=== PATIENT | male | born 1995 | race Caucasian/White ===

== ENCOUNTER 2019-11-21 09:07 | Emergency (ER) | payer SELFPAY ==
[~2019-11-21] VITALS: Ht 175.3 cm; Wt 92.5 kg
[2019-11-21 09:12] VITALS: BP 124/78
[2019-11-21] MEDS ORDERED: DICL75TA2 PO (09:30)
--- NOTE | 2019-11-21 09:31 | ED Upper Extremity ---
General Chief Complaint: Upper Extremity Stated Complaint: LT SHOULDER PAIN Nursing Triage Note: Patient arrived by private vehcile with chief complaint of left shoulder pain. Pain started about 1 week ago and did not have any injury to the left shoulder. Patient stated pain is about a 4/10. No past medical history. Nursing Sepsis Screen: No Definite Risk Source: patient Exam Limitations: no limitations History of Present Illness Date Seen by Provider: November 21, 2019 Time Seen by Provider: 09:20 Initial Comments This patient is a 24-year-old male that presents to the emergency department for left shoulder pain about a week. Patient works a job that does require some lifting. Stasis been hurting has a truss to lift his arm but 45 angle. On the left side. No obvious signs of injury. Onset: last week Pain/Injury Location: left shoulder Method of Injury: unknown Allergies and Home Medications Patient Home Medication List Home Medication List Reviewed: Yes Review of Systems Constitutional: see HPI EENTM: No see HPI, No no symptoms reported, No ear discharge, No hearing loss, No ear pain, No blurred vision, No double vision, No eye pain, No tearing, No vision loss, No dental problems, No hoarseness, No mouth pain, No mouth swelling, No epistaxis, No nose congestion, No nose pain, No throat pain, No throat swelling, No other Respiratory: No no symptoms reported, No see HPI, No cough, No dyspnea on exertion, No hemoptysis, No orthopnea, No phlegm, No short of breath, No stridor, No wheezing, No other Cardiovascular: No no symptoms reported, No see HPI, No chest pain, No edema, No Hx of Intervention, No palpitations, No syncope, No vascular heart diseas, No other Musculoskeletal: joint pain All Other Systems Reviewed Negative Unless Noted: Yes Past Rxxwthn-Kvhswu-Qvecgq Hx Patient Social History Alcohol Use: Denies Use Recreational Drug Use: No Smoking Status: Current Everyday Smoker Type Used: Cigarettes 2nd Hand Smoke Exposure: Yes Recent Foreign Travel: No Contact w/Someone Who Travel: No Recent Infectious Disease Expo: No Recent Hopitalizations: No Physical Abuse: No Sexual Abuse: No Mistreated: No Fear: No Seasonal Allergies Seasonal Allergies: No Past Medical History Surgeries: No Respiratory: No Cardiac: No Neurological: No Genitourinary: No Gastrointestinal: No Musculoskeletal: No Endocrine: No HEENT: No Cancer: No Psychosocial: No Integumentary: No Blood Disorders: No Physical Exam Vital Signs Vital Signs - First Documented 11/21/19 09:12 Temp 36.2 Pulse 76 Resp 18 B/P (MAP) 124/78 (93) Pulse Ox 97 O2 Delivery Room Air Capillary Refill : Less Than 3 Seconds Height, Weight, BMI Height: '" Weight: lbs. oz. kg; 30.00 BMI Method: General Appearance: WD/WN, no apparent distress Neck: non-tender, full range of motion, supple, normal inspection Cardiovascular: normal peripheral pulses, regular rate, rhythm, no edema, no gallop, no JVD, no murmur Respiratory: chest non-tender, lungs clear, normal breath sounds, no respiratory distress, no accessory muscle use Gastrointestinal: normal bowel sounds, non tender, soft, no organomegaly, no pulsatile mass, abnormal bowel sounds Shoulder: normal inspection, non-tender, no evidence of injury, normal ROM Progress/Results/Core Measures Results/Orders Vital Signs/I&O 11/21/19 09:12 Temp 36.2 Pulse 76 Resp 18 B/P (MAP) 124/78 (93) Pulse Ox 97 O2 Delivery Room Air Blood Pressure Mean: 93 Progress Progress Note : Time: 09:28 Progress Note Negative exam. No signs of injury. Alternate heat and ice. We'll write patient prescription for diclofenac as needed for pain. Follow-up with PCP in 2-3 days Departure Impression Primary Impression: Left shoulder strain Disposition: 01 HOME, SELF-CARE Condition: Stable Departure-Patient Inst. Decision time for Depature: 09:29 Referrals: NO,LOCAL PHYSICIAN (PCP) Primary Care Physician Patient Instructions: Overuse Injuries Add. Discharge Instructions: Alternate heat and ice. We'll write patient prescription for diclofenac as needed for pain. Follow-up with PCP in 2-3 days All discharge instructions reviewed with patient and/or family. Voiced understanding. Scripts Diclofenac Sodium (Diclofenac Sodium) 75 Mg Tablet. 75 MG PO BID for 10 Days, #20 TAB 0 Refills Prov: DILIP TRUJILLO MD 11/21/19 DILIP TRUJILLO MD November 21, 2019 09:31
--- OUTSIDE RECORDS SUMMARY | 2019-11-21 09:41 | XMS REPORT | Continuity of Care Document ---
Demographics Preferred Language Unknown Marital Status Unknown Jew Affiliation Unknown Race Unknown Ethnic Group Unknown Author Organization Unknown Address Unknown Phone Unavailable Allergies There is no data. Medications There is no data. Problems Date Dx Coded Attending Type Code Diagnosis Diagnosed By 08/21/2010 V70.3 SPOR TS/SCHOOL EXAM Procedures There is no data. Results There is no data. Encounters ACCT No. Visit Date/Time Discharge Status Pt. Type Provider Facility Loc./Unit Complaint [id number] 08/26/2012 10:38:00 08/26/2012 23:59: 59 [facility] Out[facility]
== END 2019-11-21 09:35 | disposition home or self-care (01) ==
LOC: ER FS 09:09
DX: S46.912A Strain of unspecified muscle, fascia and tendon at shoulder and upper arm level, left arm, initial encounter (principal); F17.210 Nicotine dependence, cigarettes, uncomplicated; X50.0XXA Overexertion from strenuous movement or load, initial encounter
CPT/HCPCS: 99282

== ENCOUNTER 2021-07-01 15:02 | Emergency (ER) | payer SELFPAY ==
[~2021-07-01] VITALS: Ht 175.3 cm; Wt 84.0 kg
[~2021-07-01 15:02] MED LIST: DICL75TA2 PO
[2021-07-01 15:10] VITALS: BP 131/76
[2021-07-01] MEDS ORDERED: ONDANSETRON 4 MG (ZOFRAN) ORAL DISSOLVE TAB PO STA (15:27)
--- NOTE | 2021-07-01 15:52 | ED General ---
General Chief Complaint: COVID19 Suspect/Confirmed Stated Complaint: FEVER; VOMITING Nursing Triage Note: PT AMBULATE TO ROOM FS03 WITH C/O N/V/D, AND CONGESTION X1 DAY. PT REQUESTING A COVID SWAB. Source of Information: Patient History of Present Illness Date Seen by Provider: Jul 01, 2021 Time Seen by Provider: 14:45 Initial Comments Patient is a 26-year-old male who presents with nausea vomiting and diarrhea for 24 hours with fever yesterday. Patient states he has been taking ibuprofen and Tylenol and was able to eat yesterday but vomited stomach contents early this morning and continues to feel nauseated. Feels generally weak, but denies dizziness lightheadedness. No fever today. Denies cough, sore throat, shortness of breath. Denies abdominal pain other than cramping with diarrhea. No other acute symptoms or complaints. No prior abdominal surgeries. Timing/Duration: 1-3 Hours Severity: Mild Modifying Factors: improves with Other Associated Systoms: Other Allergies and Home Medications Allergies Coded Allergies: No Known Drug Allergies (Unverified , 07/01/21) Patient Home Medication List Home Medication List Reviewed: Yes Diclofenac Sodium (Diclofenac Sodium) 75 Mg Tablet.dr 75 MG PO BID Prescribed by: DILIP TRUJILLO on 11/21/19 0547 Review of Systems Review of Systems Constitutional: see HPI EENTM: see HPI Respiratory: see HPI Cardiovascular: see HPI Gastrointestinal: see HPI Genitourinary: see HPI Musculoskeletal: see HPI Skin: see HPI Psychiatric/Neurological: See HPI Immunological/Allergic: see HPI All Other Systems Reviewed Negative Unless Noted: Yes Past Ntpdvgw-Lyuedo-Czosjv Hx Patient Social History Tobacco type used: Cigarettes Smoking Status: Current Everyday Smoker Smokeless Tobacco Frequency: Never a User Use of E-Cig and/or Vaping dev: No Use of E-Cig and/or Vaping Srikanth: Never a User Substance use?: No Alcohol Use?: No Pt feels they are or have been: No Seasonal Allergies Seasonal Allergies: No Past Medical History Surgeries: No Respiratory: No Cardiac: No Neurological: No Genitourinary: No Gastrointestinal: No Musculoskeletal: No Endocrine: No HEENT: No Cancer: No Psychosocial: No Integumentary: No Blood Disorders: No Physical Exam Vital Signs Vital Signs - First Documented 07/01/21 15:10 Temp 36.5 Pulse 82 Resp 16 B/P (MAP) 131/76 (94) O2 Delivery Room Air Capillary Refill : Less Than 3 Seconds Height, Weight, BMI Height: '" Weight: lbs. oz. kg; 27.00 BMI Method: General Appearance: Anxious Eyes: Bilateral Eye Normal Inspection, Bilateral Eye PERRL, Bilateral Eye EOMI HEENT: PERRL/EOMI, TMs Normal, Normal ENT Inspection, Pharynx Normal Neck: Full Range of Motion, Non Tender Respiratory: Chest Non Tender, Lungs Clear Cardiovascular: Regular Rate, Rhythm Gastrointestinal: Non Tender, Soft Back: Normal Inspection, No CVA Tenderness Extremity: Normal Capillary Refill Neurologic/Psychiatric: Alert, Oriented x3, Normal Mood/Affect Skin: Normal Color, Warm/Dry Progress/Results/Core Measures Suspected Sepsis SIRS Temperature: Pulse: 82 Respiratory Rate: 16 Blood Pressure 131 /76 Mean: 94 Results/Orders Lab Results Laboratory Tests Test 07/01/21 15:18 Range/Units My Orders Orders - SORAYA MATHEWid 19 Inhouse Test (07/01/21 15:22) Influenza A And B By Pcr (07/01/21 15:22) Isolation Central Supply Req (07/01/21 15:22) Ondansetron Oral Dissolve Tab (Zofran (07/01/21 15:27) Vital Signs/I&O 07/01/21 07/01/21 15:10 15:10 Temp 36.5 Pulse 82 Resp 16 B/P (MAP) 131/76 (94) O2 Delivery Room Air Room Air Capillary Refill : Less Than 3 Seconds Blood Pressure Mean: 94 Departure Communication (Admissions) Abdomen soft, nonsurgical. Zofran given in the ED with patient's bili noted to keep down fluids. We'll continue supportive care with watchful waiting and PCP follow-up. Return precautions reviewed. Patient verbalizes understanding agreement discharge instructions prior to departure. Impression Primary Impression: Abdominal pain Additional Impression: Nausea & vomiting Disposition: 01 HOME, SELF-CARE Condition: Stable Departure-Patient Inst. Decision time for Depature: 15:54 Referrals: NO,LOCAL PHYSICIAN (PCP/Family) Primary Care Physician Patient Instructions: Diarrhea and Travelers' Diarrhea, Child (DC), Nausea and Vomiting, Adult (DC) Add. Discharge Instructions: You were evaluated in the emergency department for fever, nausea vomiting and diarrhea. The exact cause of your symptoms has not been determined but is cons istent with a viral illness, and in the community. Please go home and rest, take ibuprofen or Tylenol for fever and nausea medication as directed. You may take Imodium OTC or Pepto-Bismol for diarrhea. Drink clear liquids only for the next 6 to 12 hours, then gradually increase to a bland diet as tolerated. Follow-up with your PCP for reevaluation in 2 to 3 days if symptoms persist. Return to the ED if new or worsening symptoms. All discharge instructions reviewed with patient and/or family. Voiced unders abida. SORAYA MATHEW DO Jul 01, 2021 15:52
[2021-07-01] MEDS ORDERED: ONDN4T PO (15:59)
== END 2021-07-01 18:25 | disposition home or self-care (01) ==
LOC: EDUNIT# 15:02 → ER FS 15:03
DX: R10.9 Unspecified abdominal pain (principal); R11.2 Nausea with vomiting, unspecified; F17.210 Nicotine dependence, cigarettes, uncomplicated; Z20.822 Contact with and (suspected) exposure to COVID-19
CPT/HCPCS: 87635; 87636; 87804